=== PATIENT | female | born 1975 | race Caucasian/White ===

== ENCOUNTER 2020-01-06 22:20 | Emergency (ER) | payer MEDICAID ==
[2020-01-07] MEDS ORDERED: Lidocaine 2% Viscous Solution 100 ML Bottle PO ONE (00:07)
--- NOTE | 2020-01-07 00:14 | EDM.PDOC ---
ED HPI GENERAL MEDICAL PROBLEM - General Chief Complaint: Skin Complaint Stated Complaint: SUNBURN Time Seen by Provider: 01/06/20 23:50 Source of Information: Reports: Patient, Family, RN Notes Reviewed History Limitations: Reports: No Limitations - History of Present Illness INITIAL COMMENTS - FREE TEXT/NARRATIVE: Ginette presents today for complaints of sunburn and swelling to bilateral hands, feet and sunburn to chest. She reports she has been taking doxycycline for lymes disease. She tried use of 30SPF without any help. She denies fever, chills, nausea, vomiting or other concerns. 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 Generalized Pain Score (Numeric/FACES): 10 - Related Data Allergies Allergy/AdvReac Type Severity Reaction Status Date / Time prochlorperazine Allergy Shaking Unverified 01/07/20 00:31 [From Compazine] Home Meds: Home Meds Acetaminophen/Butalbital/Caff [Fioricet 325-50-40 MG] 1 tab PO DAILY 01/06/20 [History] Amitriptyline [Elavil] 100 mg PO BEDTIME 01/06/20 [History] Aspirin 325 mg PO DAILY 01/06/20 [History] Doxycycline [Doxycycline Hyclate] 100 mg PO BID 01/06/20 [History] Melatonin 5 mg PO DAILY 01/06/20 [History] Multivitamin [Multi-Vitamin Daily] 1 tab PO DAILY 01/06/20 [History] Tamoxifen [Nolvadex] 10 mg PO DAILY 01/06/20 [History] Past Medical History Cardiovascular History: Reports: Other (See Below) Other Cardiovascular History: PFO closure 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 7 breast reconstruction surgeries Social & Family History - Tobacco Use Smoking Status *Q: Current Some Day Smoker Years of Tobacco use: 6 Packs/Tins Daily: 0 Used Tobacco, but Quit: No Second Hand Smoke Exposure: No - Caffeine Use Caffeine Use: Reports: Soda - Alcohol Use Days Per Week of Alcohol Use: 0 - Recreational Drug Use Recreational Drug Use: No ED ROS GENERAL - Review of Systems Review Of Systems: See Below Constitutional: Reports: No Symptoms HEENT: Reports: No Symptoms Respiratory: Reports: No Symptoms Cardiovascular: Reports: No Symptoms Musculoskeletal: Reports: Other (bilateral hand and foot pain. ) Skin: Reports: Burn(s), Other (sunburn to bilateral hands, feet, chest) Neurological: Reports: No Symptoms Psychiatric: Reports: No Symptoms Hematologic/Lymphatic: Reports: No Symptoms Immunologic: Reports: No Symptoms ED EXAM, SKIN/RASH Exam: See Below Exam Limited By: No Limitations General Appearance: Alert, WD/WN, Moderate Distress Ears: Normal Canal, Hearing Grossly Normal, Normal TMs, Other (ears/lobes trace edema, erythema secondary to sunburn. No blistering noted. ) Throat/Mouth: Normal Inspection, Normal Lips, Normal Teeth, Normal Gums, Normal Oropharynx, Normal Voice, No Airway Compromise Head: Atraumatic, Normocephalic Neck: Normal Inspection, Supple, Non-Tender, Full Range of Motion. No: Lymphadenopathy (R), Lymphadenopathy (L) Respiratory/Chest: No Respiratory Distress, Lungs Clear, Normal Breath Sounds, No Accessory Muscle Use, Chest Non-Tender Cardiovascular: Normal Peripheral Pulses, Regular Rate, Rhythm, No Edema, No Murmur, No Rub Peripheral Pulses: 2+: Radial (L), Radial (R), Dorsalis Pedis (L), Dorsalis Pedis (R) Extremities: Normal Capillary Refill, Increased Warmth, Redness, Other (bilateral hands/fingers, toes edematous, warm to touch, second degree sunburn. No blistering at this time. ) Neurological: Alert, Oriented, Normal Cognition, Normal Gait, Normal Reflexes, No Motor/Sensory Deficits Psychiatric: Normal Affect, Normal Mood Skin: Intact, Erythema, Other (second degree sunburn to bilateral hands, feet, fingers toes, chest) Associated features: Warmth, Tenderness, Swelling, Inflammation. No: Scaling, Crusting, Weeping Course - Vital Signs Last Recorded V/S: Last Vital Signs Temp 36.0 C L 01/06/20 23:37 Pulse 85 01/06/20 23:37 Resp 16 01/06/20 23:37 BP 143/94 H 01/06/20 23:37 Pulse Ox 98 07/18/20 23:37 - Orders/Labs/Meds Meds: Medications Discontinued Medications Generic Name Dose Route Start Last Admin Trade Name Colleen PRN Reason Stop Dose Admin Lidocaine HCl 20 ml 01/07/20 00:07 01/07/20 00:35 Xylocaine 2% Viscous PO 01/07/20 00:08 20 ml ONETIME ONE Administration Lidocaine HCl Confirm 01/07/20 00:28 Xylocaine 2% Viscous Administered 01/07/20 00:29 Dose 30 ml .ROUTE .STK-MED ONE Silver Sulfadiazine 1 gm 01/07/20 00:17 01/07/20 00:36 Silvadene 1% Cream 50 Gm TOP 01/07/20 00:18 1 gm ONETIME ONE Administration Silver Sulfadiazine Confirm 01/07/20 00:28 Silvadene 1% Cream 50 Gm Administered 01/07/20 00:29 Dose 50 gm TOP .STK-MED ONE - Re-Assessments/Exams Free Text/Narrative Re-Assessment/Exam: 01/07/20 00:10 Review of second degree burn sun exposure care reviewed with patient. We will complete topical lidocaine to bilateral hands and feet with light wrap to assist with pain. Patient will take ibuprofen and percocet tonight once she gets home to assist with rest. Care reviewed, patient and her significant other verbalize understanding. All their questions were answered. She will continue use of doxycycline. Prevent further sun exposure while taking medication. Departure - Departure Time of Disposition: 00:28 Disposition: Home, Self-Care 01 Condition: Good Clinical Impression: Sunburn, second degree - Discharge Information *PRESCRIPTION DRUG MONITORING PROGRAM REVIEWED*: No *COPY OF PRESCRIPTION DRUG MONITORING REPORT IN PATIENT TROY: No Instructions: Sunburn, Adult Referrals: PCP,None [Primary Care Provider] - Forms: ED Department Discharge Additional Instructions: You have been evaluated and treated for sunburn secondary to sun exposure and use of doxycycline. Apply cool compresses, use of aloe vera and/or colloidal oatmeal can help with pain several times a day. May use silvadene cream-sparingly to help with pain/inflammation (be careful as physician ophthalmologist use can cause skin discoloration). Take ibuprofen 800mg by mouth with food for pain/inflammation. Take acetaminophen three times a day for pain. If pain not well controlled then take percocet as directed. Stay hydrated by drinking plenty of water. Avoid sun exposure while taking doxycycline. Cover exposed areas while in the sun. Report to the emergency room for worsening, issues signs of infection or concerns. Sepsis Event Note (ED) - Evaluation Sepsis Screening Result: No Definite Risk - Focused Exam Vital Signs: Vital Signs Temp Pulse Resp BP Pulse Ox 01/06/20 23:37 36.0 C L 85 16 143/94 H 98 01/06/20 23:01 36.0 C L 85 16 143/94 H 98 - Assessment/Plan Assessment:: Sunburn, second degree Plan: Patient evaluated and treated for sunburn secondary to sun exposure and use of doxycycline. Apply cool compresses, use of aloe vera and/or colloidal oatmeal can help with pain several times a day. May use silvadene cream-sparingly to help with pain/inflammation (be careful as physician ophthalmologist use can cause skin discoloration). Take ibuprofen 800mg by mouth with food for pain/inflammation. Take acetaminophen three times a day for pain. If pain not well controlled then take percocet as directed. Stay hydrated by drinking plenty of water. Avoid sun exposure while taking doxycycline. Cover exposed areas while in the sun. Report to the emergency room for worsening, issues signs of infection or concerns.
[2020-01-07] MEDS ORDERED: Silver Sulfadiazine 1% Crm 50 GM Tube TOP ONE ×2 (00:17→00:28)
[2020-01-07] MEDS ORDERED: Lidocaine 2% Viscous Solution 15 ML Cup ONE (00:28)
== END 2020-01-07 00:59 | disposition home or self-care (01) ==
LOC: JP.ED 22:20
DX: L55.1 Sunburn of second degree (principal); F17.200 Nicotine dependence, unspecified, uncomplicated; Z88.8 Allergy status to other drugs, medicaments and biological substances; Z79.82 Long term (current) use of aspirin; Z79.899 Other long term (current) drug therapy; Z86.73 Personal history of transient ischemic attack (TIA), and cerebral infarction without residual deficits
CPT/HCPCS: 99282; A9270